=== PATIENT | male | born 1995 | race Caucasian/White ===

== ENCOUNTER 2022-05-19 08:36 | Outpatient (CLI) | payer BC, SELFPAY ==
[2022-05-19 13:38] LABS: Albumin* 4.6 g/dL (3.3-5.0); Chloride* 104 mmol/L (96-114); Sodium* 139 mmol/L (135-149)
[2022-05-19 13:39] LABS: Potassium* 4.8 mmol/L (3.6-5.1)
[2022-05-19 13:40] LABS: Carbon Dioxide* 27 mmol/L (20-32); Cholesterol* 160 mg/dL (90-199); Estimated Glomerular Filt Rate 106 ml/min
[2022-05-19 13:41] LABS: Alanine Aminotransferase* 34 U/L (4-50); Alkaline Phosphatase* 77 U/L (40-150); Aspartate Amino Transferase* 31 U/L (12-35); Bilirubin Total* 0.7 mg/dL (0.1-1.5); Blood Urea Nitrogen* 19 mg/dL (5-24); Calcium* 9.6 mg/dL (8.4-10.6); Glucose* 90 mg/dL (60-115); Total Protein* 8.2 g/dL (6.0-8.3); Triglycerides* 59 mg/dL (40-149)
[2022-05-19 13:42] LABS: HDL Cholesterol* 34 mg/dL (>=40); LDL Cholesterol Calculated 114 mg/dL (<100)
[2022-05-20 19:31] LABS: Testosterone, Adult Male 371 ng/dL (300-1080)
== END 2022-05-19 08:37 | disposition home or self-care (01) ==
PROVIDERS: PCP Family Medicine; Visit Provider Emergency Medicine
DX: Z00.00 Encounter for general adult medical examination without abnormal findings (principal); R68.82 Decreased libido; Z68.32 Body mass index [BMI] 32.0-32.9, adult; Z13.6 Encounter for screening for cardiovascular disorders; Z13.1 Encounter for screening for diabetes mellitus
CPT/HCPCS: 80053; 80061; 84403

== ENCOUNTER 2023-01-12 08:13 | Outpatient (CLI) | payer BC, SELFPAY | END 2023-01-12 08:14 | disposition home or self-care (01) | PROVIDERS: PCP Family Medicine; Visit Provider Family Medicine | DX: Z00.00 Encounter for general adult medical examination without abnormal findings (principal); R68.82 Decreased libido; Z13.1 Encounter for screening for diabetes mellitus; Z13.6 Encounter for screening for cardiovascular disorders | CPT/HCPCS: 80061; 84270; 84402; 84403; 84443 ==